=== PATIENT | male | born 1985 | race Caucasian/White ===

== ENCOUNTER 2022-02-08 19:44 | Inpatient (IN) | payer MEDICAID, SELFPAY ==
[2022-02-08 19:59] VITALS: BP 128/86; PULSE 58; RESP 14; O2SAT 96; BMI 34.8
--- NOTE | 2022-02-08 20:21 | PC.NURSE ---
[facility] referral submitted at this time.
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
[2022-02-08 21:43] LABS: MANUAL DIFF FLAG NO
[2022-02-08 21:50] LABS: Basophils Absolute Auto 0.1 X10*3/uL (0.0-0.2); Basophils Percent Auto 0.7 % (0-2); Eosinophils Absolute Auto 0.3 X10*3/uL (0.0-0.4); Eosinophils Percent Auto 4.4 % (0-4); Hematocrit 40.9 % (42.0-52.0); Hemoglobin 14.5 g/dl (14.0-18.0); Imm Gran Abs Auto 0.01 X10*3/uL (0.00-0.03); Imm Gran Pct Auto 0.1 % (0.0-0.4); Lymphocytes Absolute Auto 3.6 X10*3/uL (1.2-4.9); Lymphocytes Percent Auto 47.3 % (20-40); Mean Corpuscular HGB Conc 35.5 g/dl (31.0-36.0); Mean Corpuscular Hemoglobin 29.4 pg (27.0-33.0); Mean Corpuscular Volume 82.8 fL (80.0-98.0); Mean Platelet Volume 10.1 fL (9.4-12.4); Monocytes Absolute Auto 0.6 X10*3/uL (0.1-1.2); Monocytes Percent Auto 8.4 % (2-11); Neutrophils Percent Auto 39.1 % (45-73); Platelet Count 275 X10*3/uL (160-400); Red Blood Count 4.94 X10*6/uL (4.60-5.80); Red Cell Distribution Width 12.1 % (11.0-16.0); White Blood Count 7.5 X10*3/uL (4.8-10.8)
[2022-02-08 21:57] LABS: Amphetamine Screen Urine Not Detected (Not Detect); Barbiturates, Urine Not Detected (Not Detect); Benzodiazepines Screen Urine Not Detected (Not Detect); Cannabinoid Screen Urine POSITIVE (Not Detect); Cocaine Screen Urine Not Detected (Not Detect); Fentanyl, urine Not Detected (Not Detect); Opiate Screen Urine Not Detected (Not Detect); Phencyclidine Screen Urine Not Detected (Not Detect)
[2022-02-08 22:01] LABS: Alanine Aminotransferase 51 U/L (0-40); Albumin Level 4.3 g/dL (3.5-5.0); Alkaline Phosphatase 90 U/L (39-117); Anion Gap 10 (12-20); Aspartate Amino Transferase 25 U/L (5-37); Bilirubin Total 0.6 mg/dL (0.0-1.0); Blood Urea Nitrogen 14 mg/dL (9-16); Calcium 9.4 mg/dL (8.4-10.2); Carbon Dioxide 27 mmol/L (22-29); Chloride 106 mmol/L (96-108); Creatinine Clr Calc Pharmacy 163.9; Estimated Glomerular Filt Rate > 60; Ethanol < 10 mg/dL; Glucose Random 95 mg/dL (60-115); Potassium 3.8 mmol/L (3.3-5.1); Sodium 139 mmol/L (135-145); Total Protein 6.6 g/dL (6.5-8.0)
[2022-02-09 00:39] VITALS: BP 107/64; PULSE 51; RESP 17; TEMP 36.7; O2SAT 99
--- NOTE | 2022-02-09 06:20 | PC.NURSE ---
Patient slept through the night, no distress observed/reported, non behavior concerns at this time, seems confused or lost at time, med rec completed/patient is currently no on any medication, patient was assessed by [facility] in the community, disposition is section 12 inpatient bed search, VSS, will continue to monitor.
[2022-02-09 06:37] LABS: Influenza A PCR NEGATIVE (Negative); Influenza B PCR NEGATIVE (Negative); Resp Syncy Virus RNA Qual PCR NEGATIVE (Negative); SARS COV2 PCR INHOUSE NEGATIVE (Negative)
[2022-02-09 07:21] VITALS: BP 106/82; PULSE 68; RESP 16; TEMP 36.6; O2SAT 95
[2022-02-09] MEDS: Nicotine Polacrilex 2 MG GUM BUCCAL (13:09)
--- NOTE | 2022-02-09 17:05 | MHC.CARE ---
CARE Team discusses postponement of admission to inpt psych unit until tomorrow. Pt is understanding and calm, returns to playing cards with other patients in the milieu.
[2022-02-09 20:35] VITALS: BP 116/74; PULSE 76; RESP 18; TEMP 36.6; O2SAT 98
[2022-02-09] MEDS: diphenhydrAMINE HCL 25 MG CAPSULE 50 MG PO (22:06)
--- NOTE | 2022-02-10 05:38 | PC.NURSE ---
Patient slept through the night, + effect from Benadryl 50 mg administered at 2206 as requested by the patient, behavior and mood stable without any concerns at this time, med rec completed/patient is currently not on any home medication, disposition per [facility] from community is section 12 inpatient bed search, no update bed search thus far, VSS, will continue to monitor.
[2022-02-10 05:59] VITALS: BP 120/70; PULSE 68; RESP 16; O2SAT 98
[2022-02-10 10:01] VITALS: BP 114/76; PULSE 65; RESP 16; TEMP 36.5; O2SAT 96
[2022-02-10 11:22] VITALS: BP 120/78; PULSE 66; RESP 20; TEMP 37.1; O2SAT 98
[2022-02-10 12:45] VITALS: BP 133/82; PULSE 68; RESP 18; TEMP 36.6; O2SAT 96
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
--- NOTE | 2022-02-10 15:48 | PC.NURSE ---
Jh was admitted to M3 at 1230 from [facility] [place] [facility] for treatment of bipolar disorder. Precipitant of admission include no sleep for at least 4 weeks , belief that aliens are after him and ideas of reference involving the and the government. He is alert, oriented x 3 and cooperative with admission except refusing to sign releases. Mood is reportedly depressed. He denies hallucinations but appears paranoid and suspicious. Thought Process is disorganized. He denies ideation, plan or intent to harm self or others. He reports good appetite with no recent gain or loss in weight. He reports no sleep for the last 4 weeks. Substance Issues include daily marijuana use and history of alcohol use disorder with remission x last 4 years - one drink on Monday02/06/22 Patient denies current medical issues?and denies physical complaint. Patient is placed on q 15 minute safety checks.
[2022-02-10 20:10] VITALS: BP 140/73; PULSE 63; RESP 18; TEMP 36.2; O2SAT 97
[2022-02-10] MEDS: Lithium Carbonate ER 300 MG TABLET.ER 600 MG PO (20:14)
[2022-02-10] MEDS: OLANZapine 10 MG TABLET PO (20:14)
[2022-02-10] MEDS: LORazepam 1 MG TABLET 2 MG PO (20:14)
[2022-02-10] MEDS: Acetaminophen 325 MG TABLET 650 MG PO (20:15)
[2022-02-11 09:23] LABS: Alanine Aminotransferase 55 U/L (0-40); Albumin Level 4.3 g/dL (3.5-5.0); Alkaline Phosphatase 89 U/L (39-117); Anion Gap 9 (12-20); Aspartate Amino Transferase 21 U/L (5-37); Bilirubin Total 0.4 mg/dL (0.0-1.0); Blood Urea Nitrogen 13 mg/dL (9-16); Calcium 9.6 mg/dL (8.4-10.2); Carbon Dioxide 27 mmol/L (22-29); Chloride 106 mmol/L (96-108); Cholesterol 160 mg/dL; Creatinine Clr Calc Pharmacy 161.9; Estimated Glomerular Filt Rate > 60; Glucose Fasting 96 mg/dL (60-99); HDL Cholesterol 36 mg/dL; LDL Cholesterol Calculated 94 mg/dl; Potassium 4.4 mmol/L (3.3-5.1); Sodium 138 mmol/L (135-145); Total Protein 6.9 g/dL (6.5-8.0); Triglycerides 153 mg/dL
[2022-02-11 09:30] VITALS: BP 115/70; PULSE 60; RESP 20; TEMP 36.6; O2SAT 99
[2022-02-11] MEDS: Lithium Carbonate ER 300 MG TABLET.ER 600 MG PO ×2 (09:57→21:34)
--- NOTE | 2022-02-11 14:52 | HO.PSYCHPN ---
Subjective Subjective Date of Service: 02/11/22 Reason For Visit: si Interim History: calm, cooperative, pleasant, agreeable. reports he slept well last night, mood pretty good, attended art group. eating well. would like to remain in present regimen. per staff, cooperative. depressed. paranoid, disorganized. took lithium and zyprexa last night. slept. Mental Status Exam Mental Status Exam Narrative: calm, cooperative. wearing hospital rob. no PMA/PMR. speech nml amount, nml rate. nml tone, loudness. nml latency. thoughts more organized. better able to answer direct questions. affect constricted, normo-intense, non-labile. mood pretty good. no SI/HI/AVH expressed. Diagnostics Vital Signs (24Hr): Vital Signs - 24 hr 02/10/22 20:10 02/11/22 09:30 Temperature 97.2 F 97.8 F Pulse Rate 63 60 Respiratory Rate 18 20 Blood Pressure 140/73 H 115/70 Pulse Oximetry 97 99 Oxygen Delivery Method Room Air Room Air BMI result Body Mass Index 34.8 Labs Results: 02/08/22 21:38 02/11/22 08:21 Labs: Laboratory Results - last 48 hr 02/11/22 08:21 Sodium 138 Potassium 4.4 Chloride 106 Carbon Dioxide 27 Anion Gap 9 L BUN 13 Creatinine 0.80 Estim Creat Clear Calc 161.9 Estimated GFR > 60 Fasting Glucose 96 Calcium 9.6 Total Bilirubin 0.4 AST 21 ALT 55 H Alkaline Phosphatase 89 Total Protein 6.9 Albumin 4.3 Triglycerides 153 Cholesterol 160 LDL Cholesterol, Calc 94 HDL Cholesterol 36 Medications Medications Current Medications Acetaminophen (Acetaminophen 325 Mg Tablet) 650 mg PO Q6H PRN PRN Reason: Headache/Pain Mild Scale (1-3) Last Admin: 02/10/22 20:15 Dose: 650 mg Al Hydroxide/Mg Hydroxide (Magnesium Hydrox/Alum Hydrox 30 Ml Oral.Susp) 30 ml PO Q6H PRN PRN Reason: Heartburn/Nausea Hydroxyzine HCl (Hydroxyzine Hcl 25 Mg Tablet) 25 mg PO Q6H PRN PRN Reason: Anxiety [place] Carbonate ([place] Carbonate Er 300 Mg Tablet.Er) 600 mg PO BID [facility] Last Admin: 02/11/22 09:57 Dose: 600 mg Lorazepam (Lorazepam 1 Mg Tablet) 2 mg PO BEDTIME [facility] Last Admin: 02/10/22 20:14 Dose: 2 mg Magnesium Hydroxide (Milk Of Magnesia 30 Ml Oral.Susp) 30 ml PO DAILY PRN PRN Reason: Constipation Nicotine Polacrilex (Nicotine Polacrilex 2 Mg Gum) 4 mg [place] Q1H PRN PRN Reason: nicotine cravings Olanzapine (Olanzapine 2.5 Mg Tablet) 2.5 mg PO Q4H PRN PRN Reason: agitation/anxiety Olanzapine (Olanzapine 10 Mg Tablet) 10 mg PO BEDTIME [facility] Last Admin: 02/10/22 20:14 Dose: 10 mg Trazodone HCl (Trazodone Hcl 50 Mg Tablet) 50 mg PO BEDTIME PRN PRN Reason: Insomnia Allergies Allergies Allergy/AdvReac Type Severity Reaction Status Date / Time No Known Allergies Allergy Verified 02/08/22 21:27 Assessment & Plan Assessment & Plan (1) Bipolar I disorder with kaye: Status: Acute Code(s): F31.10 - Bipolar disorder, current episode manic without psychotic features, unspecified Plan 02/10: trial of lithium, starting at 600 BID, zyprexa 10 QHS, ativan 2 QHS. zyprexa 2.5 mg PRNs. NRT. 02/11: moderate improvement in thought organization seen even today. continue current mgmt. I spent __25____ minutes with the patient and/or on the patient floor today, greater than?50% of which was spent counseling/coordinating care. Reason for contiued inpatient stay Substantial Risk for: harm to self, harm to others, inability to function and rapid decompensation
[2022-02-11 21:31] VITALS: BP 147/92; PULSE 73; TEMP 36.7; O2SAT 98
[2022-02-11] MEDS: Acetaminophen 325 MG TABLET 650 MG PO (21:33)
[2022-02-11] MEDS: LORazepam 1 MG TABLET 2 MG PO (21:34)
[2022-02-11] MEDS: OLANZapine 10 MG TABLET PO (21:34)
[2022-02-11] MEDS: Milk of Magnesia 30 ML ORAL.SUSP PO (21:34)
--- NOTE | 2022-02-12 01:58 | P.PNPSI_ITS ---
Subjective Subjective Date of Service: 02/12/22 Reason For Visit: si Interim History: Spoke with pt and met with team. Pt says he feels about the same, feeling better, has been getting some sleep, slept pretty well through the night, no side effects on meds. He is thinking of signing a 3 day notice, worried about his [employer] job, wants to get back to work. Feels safe, no questions or concerns. Mental Status Exam Mental Status Exam Narrative: calm, cooperative.? wearing hospital rob.? no PMA/PMR.? speech nml amount, nml rate.? nml tone, loudness.? nml latency.? thoughts more organized.? better able to answer direct questions.? affect constricted, normo-intense, non- labile.? mood pretty good. ? no SI/HI/AVH expressed. Diagnostics Vital Signs (24Hr): Vital Signs - 24 hr 02/11/22 09:30 02/11/22 21:31 Temperature 97.8 F 98.1 F Pulse Rate 60 73 Respiratory Rate 20 Blood Pressure 115/70 147/92 H Pulse Oximetry 99 98 Oxygen Delivery Method Room Air Room Air BMI result Body Mass Index 34.8 Labs Results: 02/08/22 21:38 02/11/22 08:21 Labs: Laboratory Results - last 48 hr 02/11/22 08:21 Sodium 138 Potassium 4.4 Chloride 106 Carbon Dioxide 27 Anion Gap 9 L BUN 13 Creatinine 0.80 Estim Creat Clear Calc 161.9 Estimated GFR > 60 Fasting Glucose 96 Calcium 9.6 Total Bilirubin 0.4 AST 21 ALT 55 H Alkaline Phosphatase 89 Total Protein 6.9 Albumin 4.3 Triglycerides 153 Cholesterol 160 LDL Cholesterol, Calc 94 HDL Cholesterol 36 Medications Medications Current Medications Acetaminophen (Acetaminophen 325 Mg Tablet) 650 mg PO Q6H PRN PRN Reason: Headache/Pain Mild Scale (1-3) Last Admin: 02/11/22 21:33 Dose: 650 mg Al Hydroxide/Mg Hydroxide (Magnesium Hydrox/Alum Hydrox 30 Ml Oral.Susp) 30 ml PO Q6H PRN PRN Reason: Heartburn/Nausea Hydroxyzine HCl (Hydroxyzine Hcl 25 Mg Tablet) 25 mg PO Q6H PRN PRN Reason: Anxiety [place] Carbonate ([place] Carbonate Er 300 Mg Tablet.Er) 600 mg PO BID [facility] Last Admin: 02/11/22 21:34 Dose: 600 mg Lorazepam (Lorazepam 1 Mg Tablet) 2 mg PO BEDTIME [facility] Last Admin: 02/11/22 21:34 Dose: 2 mg Magnesium Hydroxide (Milk Of Magnesia 30 Ml Oral.Susp) 30 ml PO DAILY PRN PRN Reason: Constipation Last Admin: 02/11/22 21:34 Dose: 30 ml Nicotine Polacrilex (Nicotine Polacrilex 2 Mg Gum) 4 mg [place] Q1H PRN PRN Reason: nicotine cravings Olanzapine (Olanzapine 2.5 Mg Tablet) 2.5 mg PO Q4H PRN PRN Reason: agitation/anxiety Olanzapine (Olanzapine 10 Mg Tablet) 10 mg PO BEDTIME [facility] Last Admin: 02/11/22 21:34 Dose: 10 mg Trazodone HCl (Trazodone Hcl 50 Mg Tablet) 50 mg PO BEDTIME PRN PRN Reason: Insomnia Allergies Allergies Allergy/AdvReac Type Severity Reaction Status Date / Time No Known Allergies Allergy Verified 02/08/22 21:27 Assessment & Plan Assessment & Plan (1) Bipolar I disorder with kaye: Status: Acute Code(s): F31.10 - Bipolar disorder, current episode manic without psychotic features, unspecified Plan 02/10: trial of lithium, starting at 600 BID, zyprexa 10 QHS, ativan 2 QHS. zyprexa 2.5 mg PRNs. NRT. 02/11: moderate improvement in thought organization seen even today. continue current mgmt. 02/12: no med changes, sleeping better I spent minutes with the patient and/or on the patient floor today, greater than?50% of which was spent counseling/coordinating care. Patient educated on: medication risk/benefits and therapeutic strategies Reason for contiued inpatient stay Substantial Risk for: med/psych decompensation
[2022-02-12 08:35] VITALS: BP 130/74; PULSE 69; TEMP 36.6; O2SAT 98
[2022-02-12] MEDS: Lithium Carbonate ER 300 MG TABLET.ER 600 MG PO ×2 (09:02→21:27)
[2022-02-12 18:40] VITALS: BP 133/82; PULSE 81; RESP 16; TEMP 36.6; O2SAT 97
[2022-02-12] MEDS: OLANZapine 10 MG TABLET PO (21:27)
[2022-02-12] MEDS: LORazepam 1 MG TABLET 2 MG PO (21:27)
[2022-02-12] MEDS: Acetaminophen 325 MG TABLET 650 MG PO (21:31)
[2022-02-13 08:42] VITALS: BP 121/77; PULSE 75; RESP 16; TEMP 37; O2SAT 96
[2022-02-13] MEDS: Lithium Carbonate ER 300 MG TABLET.ER 600 MG PO ×2 (08:46→20:22)
[2022-02-13] MEDS: Nicotine Polacrilex 2 MG GUM 4 MG BUCCAL (12:10)
--- NOTE | 2022-02-13 14:41 | P.PNPSI_ITS ---
Subjective Subjective Date of Service: 02/13/22 Reason For Visit: si Interim History: Spoke with pt, met with team. Pt says he is feeling about the same. Says he got some good sleep and some good treatment. Discussed that he is familiar with hospitalization and the need for med adherence with his diagnosis, for me its ongoing and Im comfortable in this environment. Says for the most part, the lithium hit the spot, doesnt feel oversedated. Feels safe. No questions or concerns. Mental Status Exam Mental Status Exam Narrative: calm, cooperative.? wearing hospital rob.? no PMA/PMR.? speech nml amount, nml rate.? nml tone, loudness.? nml latency.? thoughts more organized.? better able to answer direct questions.? affect constricted, normo-intense, non- labile.? mood pretty good. ? no SI/HI/AVH expressed. Diagnostics Vital Signs (24Hr): Vital Signs - 24 hr 02/12/22 18:40 02/13/22 08:42 Temperature 98 F 98.6 F Pulse Rate 81 75 Respiratory Rate 16 16 Blood Pressure 133/82 121/77 Pulse Oximetry 97 96 Oxygen Delivery Method Room Air Room Air BMI result Body Mass Index 34.8 Labs Results: 02/08/22 21:38 02/11/22 08:21 Medications Medications Current Medications Acetaminophen (Acetaminophen 325 Mg Tablet) 650 mg PO Q6H PRN PRN Reason: Headache/Pain Mild Scale (1-3) Last Admin: 02/12/22 21:31 Dose: 650 mg Al Hydroxide/Mg Hydroxide (Magnesium Hydrox/Alum Hydrox 30 Ml Oral.Susp) 30 ml PO Q6H PRN PRN Reason: Heartburn/Nausea Hydroxyzine HCl (Hydroxyzine Hcl 25 Mg Tablet) 25 mg PO Q6H PRN PRN Reason: Anxiety [place] Carbonate ([place] Carbonate Er 300 Mg Tablet.Er) 600 mg PO BID KOMAL Last Admin: 02/13/22 08:46 Dose: 600 mg Lorazepam (Lorazepam 1 Mg Tablet) 2 mg PO BEDTIME KOMAL Last Admin: 02/12/22 21:27 Dose: 2 mg Magnesium Hydroxide (Milk Of Magnesia 30 Ml Oral.Susp) 30 ml PO DAILY PRN PRN Reason: Constipation Last Admin: 02/11/22 21:34 Dose: 30 ml Nicotine Polacrilex (Nicotine Polacrilex 2 Mg Gum) 4 mg [place]AL Q1H PRN PRN Reason: nicotine cravings Last Admin: 02/13/22 12:10 Dose: 4 mg Olanzapine (Olanzapine 2.5 Mg Tablet) 2.5 mg PO Q4H PRN PRN Reason: agitation/anxiety Olanzapine (Olanzapine 10 Mg Tablet) 10 mg PO BEDTIME KOMAL Last Admin: 02/12/22 21:27 Dose: 10 mg Trazodone HCl (Trazodone Hcl 50 Mg Tablet) 50 mg PO BEDTIME PRN PRN Reason: Insomnia Allergies Allergies Allergy/AdvReac Type Severity Reaction Status Date / Time No Known Allergies Allergy Verified 02/08/22 21:27 Assessment & Plan Assessment & Plan (1) Bipolar I disorder with kaye: Status: Acute Code(s): F31.10 - Bipolar disorder, current episode manic without psychotic features, unspecified Plan 02/10: trial of lithium, starting at 600 BID, zyprexa 10 QHS, ativan 2 QHS. zyprexa 2.5 mg PRNs. NRT. 02/11: moderate improvement in thought organization seen even today. continue current mgmt. 02/12: no med changes, sleeping better 02/13: signed TDN, no med changes I spent minutes with the patient and/or on the patient floor today, greater than?50% of which was spent counseling/coordinating care. Reason for contiued inpatient stay Substantial Risk for: med/psych decompensation
[2022-02-13] MEDS: OLANZapine 10 MG TABLET PO (20:22)
[2022-02-13] MEDS: LORazepam 1 MG TABLET 2 MG PO (20:22)
[2022-02-13 20:35] VITALS: BP 150/98; PULSE 89; TEMP 36.6; O2SAT 97
[2022-02-14 08:50] VITALS: BP 158/79; PULSE 78; RESP 20; TEMP 36.4; O2SAT 96
[2022-02-14] MEDS: Lithium Carbonate ER 300 MG TABLET.ER 600 MG PO ×2 (09:34→21:52)
--- NOTE | 2022-02-14 15:12 | P.PNPSI_ITS ---
Subjective Subjective Date of Service: 02/14/22 Reason For Visit: si Interim History: feeling improved, questioning his beliefs/behaviors prior to admission. good mood, sleeping well. willing to have labs checked tomorrow morning. per staff, 3-day up 02/16. visible, social. not attending groups. anxious and depressed. sleeping. Mental Status Exam Mental Status Exam Narrative: calm, cooperative.? wearing street clothes.? no PMA/PMR.? speech nml amount, nml rate.? nml tone, loudness.? nml latency.? thoughts organized.? able to answer direct questions.? affect constricted, normo-intense, non-labile.? mood very well. ? no SI/HI/AVH expressed. Diagnostics Vital Signs (24Hr): Vital Signs - 24 hr 02/13/22 20:35 02/14/22 08:50 Temperature 97.9 F 97.5 F Pulse Rate 89 78 Respiratory Rate 20 Blood Pressure 150/98 H 158/79 H Pulse Oximetry 97 96 Oxygen Delivery Method Room Air Room Air BMI result Body Mass Index 34.8 Labs Results: 02/08/22 21:38 02/11/22 08:21 Medications Medications Current Medications Acetaminophen (Acetaminophen 325 Mg Tablet) 650 mg PO Q6H PRN PRN Reason: Headache/Pain Mild Scale (1-3) Last Admin: 02/12/22 21:31 Dose: 650 mg Al Hydroxide/Mg Hydroxide (Magnesium Hydrox/Alum Hydrox 30 Ml Oral.Susp) 30 ml PO Q6H PRN PRN Reason: Heartburn/Nausea Hydroxyzine HCl (Hydroxyzine Hcl 25 Mg Tablet) 25 mg PO Q6H PRN PRN Reason: Anxiety [place] Carbonate ([place] Carbonate Er 300 Mg Tablet.Er) 600 mg PO BID [facility] Last Admin: 02/14/22 09:34 Dose: 600 mg Lorazepam (Lorazepam 1 Mg Tablet) 2 mg PO BEDTIME KOMAL Last Admin: 02/13/22 20:22 Dose: 2 mg Magnesium Hydroxide (Milk Of Magnesia 30 Ml Oral.Susp) 30 ml PO DAILY PRN PRN Reason: Constipation Last Admin: 02/11/22 21:34 Dose: 30 ml Nicotine Polacrilex (Nicotine Polacrilex 2 Mg Gum) 4 mg [place] Q1H PRN PRN Reason: nicotine cravings Last Admin: 02/13/22 12:10 Dose: 4 mg Olanzapine (Olanzapine 2.5 Mg Tablet) 2.5 mg PO Q4H PRN PRN Reason: agitation/anxiety Olanzapine (Olanzapine 10 Mg Tablet) 10 mg PO BEDTIME KOMAL Last Admin: 02/13/22 20:22 Dose: 10 mg Trazodone HCl (Trazodone Hcl 50 Mg Tablet) 50 mg PO BEDTIME PRN PRN Reason: Insomnia Allergies Allergies Allergy/AdvReac Type Severity Reaction Status Date / Time No Known Allergies Allergy Verified 02/08/22 21:27 Assessment & Plan Assessment & Plan (1) Bipolar I disorder with kaye: Status: Acute Code(s): F31.10 - Bipolar disorder, current episode manic without psychotic features, unspecified Plan 02/10: trial of lithium, starting at 600 BID, zyprexa 10 QHS, ativan 2 QHS. zyprexa 2.5 mg PRNs. NRT. 02/11: moderate improvement in thought organization seen even today. continue current mgmt. 02/12: no med changes, sleeping better 02/13: signed TDN, no med changes 02/14: mood improved, sleeping improved, thoughts improved. check labs tomorrow. 3-day notice matures 02/16. I spent ___25___ minutes with the patient and/or on the patient floor today, greater than?50% of which was spent counseling/coordinating care. Reason for contiued inpatient stay Substantial Risk for: inability to function and rapid decompensation
[2022-02-14 21:45] VITALS: BP 141/87; PULSE 73; RESP 18; TEMP 36.4; O2SAT 97
[2022-02-14] MEDS: OLANZapine 10 MG TABLET PO (21:52)
[2022-02-14] MEDS: LORazepam 1 MG TABLET 2 MG PO (21:52)
[2022-02-14] MEDS: Milk of Magnesia 30 ML ORAL.SUSP PO (21:52)
[2022-02-15 06:00] VITALS: BP 132/84; PULSE 80; RESP 16; TEMP 36.9; O2SAT 97
[2022-02-15] MEDS: Lithium Carbonate ER 300 MG TABLET.ER 600 MG PO (08:56)
[2022-02-15 09:00] LABS: MANUAL DIFF FLAG NO
[2022-02-15 09:05] LABS: Basophils Percent Auto 0.4 % (0-2); Eosinophils Absolute Auto 0.3 X10*3/uL (0.0-0.4); Hemoglobin 14.7 g/dl (14.0-18.0); Imm Gran Abs Auto 0.03 X10*3/uL (0.00-0.03); Imm Gran Pct Auto 0.4 % (0.0-0.4); Lymphocytes Absolute Auto 2.9 X10*3/uL (1.2-4.9); Lymphocytes Percent Auto 35.4 % (20-40); Mean Corpuscular HGB Conc 34.2 g/dl (31.0-36.0); Mean Corpuscular Hemoglobin 28.8 pg (27.0-33.0); Mean Corpuscular Volume 84.3 fL (80.0-98.0); Mean Platelet Volume 10.2 fL (9.4-12.4); Monocytes Absolute Auto 0.7 X10*3/uL (0.1-1.2); Monocytes Percent Auto 8.8 % (2-11); Neutrophils Absolute Auto 4.1 x10*3/uL (2.0-8.3); Platelet Count 254 X10*3/uL (160-400); Red Cell Distribution Width 12.2 % (11.0-16.0); White Blood Count 8.1 X10*3/uL (4.8-10.8)
[2022-02-15 10:01] LABS: Lithium 0.48 mmol/L (0.60-1.20)
[2022-02-15 10:28] LABS: Alanine Aminotransferase 57 U/L (0-40); Alkaline Phosphatase 74 U/L (39-117); Anion Gap 9 (12-20); Aspartate Amino Transferase 25 U/L (5-37); Bilirubin Direct < 0.2 mg/dL (0.0-0.5); Bilirubin Total 0.3 mg/dL (0.0-1.0); Blood Urea Nitrogen 12 mg/dL (9-16); Calcium 9.2 mg/dL (8.4-10.2); Carbon Dioxide 29 mmol/L (22-29); Chloride 109 mmol/L (96-108); Creatinine Clr Calc Pharmacy 154.1; Estimated Glomerular Filt Rate > 60; Glucose Random 93 mg/dL (60-115); Potassium 4.9 mmol/L (3.3-5.1); Sodium 142 mmol/L (135-145); Total Protein 6.4 g/dL (6.5-8.0)
--- NOTE | 2022-02-15 16:42 | HO.PSYCHPN ---
Subjective Subjective Date of Service: 02/15/22 Reason For Visit: si Interim History: sleeping in bed late morning, denies feeling sedated by meds. feels comfortable on both lithium and zyprexa. subtherapeutic lithium level reviewed, pt agreeable to increase from 600 BID to 600/900. planning to discharge tomorrow, informed he will need his level checked in about a week. MD indicates plan to taper ativan prior to discharge, with which pt agrees. per staff, 3-day up tomorrow. slept much of the day yesterday. otherwise visible, social. better sleep since admission. no SI/HI/AVH. eating and sleeping well. slept through the NOC. Mental Status Exam Mental Status Exam Narrative: calm, cooperative.? wearing street clothes.? no PMA/PMR.? speech nml amount, nml rate.? nml tone, loudness.? nml latency.? thoughts organized.? able to answer direct questions.? affect constricted, normo-intense, non-labile.? no SI/HI/AVH expressed. Diagnostics Vital Signs (24Hr): Vital Signs - 24 hr 02/14/22 21:45 02/15/22 06:00 Temperature 97.5 F 98.4 F Pulse Rate 73 80 Respiratory Rate 18 16 Blood Pressure 141/87 H 132/84 Pulse Oximetry 97 97 Oxygen Delivery Method Room Air Room Air BMI result Body Mass Index 34.8 Labs Results: 02/15/22 08:42 02/15/22 08:42 Labs: Laboratory Results - last 48 hr 02/15/22 02/15/22 02/15/22 08:42 08:42 08:42 WBC 8.1 RBC 5.10 Hgb 14.7 Hct 43.0 MCV 84.3 MCH 28.8 MCHC 34.2 RDW 12.2 Plt Count 254 MPV 10.2 Immature Gran % (Auto) 0.4 Neut % (Auto) 51.0 Lymph % (Auto) 35.4 [place] % (Auto) 8.8 Eos % (Auto) 4.0 Baso % (Auto) 0.4 Lymph # (Auto) 2.9 [place] # (Auto) 0.7 Eos # (Auto) 0.3 Baso # (Auto) 0.0 Abs Immat Gran (auto) 0.03 Absolute Neuts (auto) 4.1 Absolute Nucleated RBC 0.000 Nucleated RBC % (auto) 0.0 Sodium 142 Potassium 4.9 Chloride 109 H Carbon Dioxide 29 Anion Gap 9 L BUN 12 Creatinine 0.84 Estim Creat Clear Calc 154.1 Estimated GFR > 60 Random Glucose 93 Calcium 9.2 Total Bilirubin 0.3 Direct Bilirubin < 0.2 AST 25 ALT 57 H Alkaline Phosphatase 74 Total Protein 6.4 L Albumin 4.0 [place] 0.48 L Medications Medications Current Medications Acetaminophen (Acetaminophen 325 Mg Tablet) 650 mg PO Q6H PRN PRN Reason: Headache/Pain Mild Scale (1-3) Last Admin: 02/12/22 21:31 Dose: 650 mg Al Hydroxide/Mg Hydroxide (Magnesium Hydrox/Alum Hydrox 30 Ml Oral.Susp) 30 ml PO Q6H PRN PRN Reason: Heartburn/Nausea Hydroxyzine HCl (Hydroxyzine Hcl 25 Mg Tablet) 25 mg PO Q6H PRN PRN Reason: Anxiety [place] Carbonate ([place] Carbonate Er 300 Mg Tablet.Er) 600 mg PO DAILY KOMAL [place] Carbonate ([place] Carbonate Er 450 Mg Tablet.Er) 900 mg PO BEDTIME KOMAL Lorazepam (Lorazepam 1 Mg Tablet) 1 mg PO BEDTIME KOMAL Magnesium Hydroxide (Milk Of Magnesia 30 Ml Oral.Susp) 30 ml PO DAILY PRN PRN Reason: Constipation Last Admin: 02/14/22 21:52 Dose: 30 ml Nicotine Polacrilex (Nicotine Polacrilex 2 Mg Gum) 4 mg [place]CCAL Q1H PRN PRN Reason: nicotine cravings Last Admin: 02/13/22 12:10 Dose: 4 mg Olanzapine (Olanzapine 2.5 Mg Tablet) 2.5 mg PO Q4H PRN PRN Reason: agitation/anxiety Olanzapine (Olanzapine 10 Mg Tablet) 10 mg PO BEDTIME KOMAL Last Admin: 02/14/22 21:52 Dose: 10 mg Psyllium Hydrophilic Mucilloid (Psyllium Seed 3.4 Gm Powd.Pack) 3.4 gm PO DAILY KOMAL Last Admin: 02/15/22 10:04 Dose: 3.4 gm Trazodone HCl (Trazodone Hcl 50 Mg Tablet) 50 mg PO BEDTIME PRN PRN Reason: Insomnia Allergies Allergies Allergy/AdvReac Type Severity Reaction Status Date / Time No Known Allergies Allergy Verified 02/08/22 21:27 Assessment & Plan Assessment & Plan (1) Bipolar I disorder with kaye: Status: Acute Code(s): F31.10 - Bipolar disorder, current episode manic without psychotic features, unspecified Plan 02/10: trial of lithium, starting at 600 BID, zyprexa 10 QHS, ativan 2 QHS. zyprexa 2.5 mg PRNs. NRT. 02/11: moderate improvement in thought organization seen even today. continue current mgmt. 02/12: no med changes, sleeping better 02/13: signed TDN, no med changes 02/14: mood improved, sleeping improved, thoughts improved. check labs tomorrow. 3-day notice matures 02/16. 02/15: stable. lithium level 0.48 on 600 BID. dosing increased to 600/900 as of tonight. discharging tomorrow, will need lithium level a week after discharge. I spent ___25___ minutes with the patient and/or on the patient floor today, greater than?50% of which was spent counseling/coordinating care. Reason for contiued inpatient stay Substantial Risk for: inability to function and rapid decompensation
[2022-02-15] MEDS: OLANZapine 10 MG TABLET PO (20:43)
[2022-02-15] MEDS: LORazepam 1 MG TABLET PO (20:43)
[2022-02-15] MEDS: Lithium Carbonate ER 450 MG TABLET.ER 900 MG PO (20:43)
[2022-02-15 20:45] VITALS: BP 165/86; PULSE 87; RESP 18; TEMP 36.7; O2SAT 95
[2022-02-15] MEDS: Nicotine Polacrilex 2 MG GUM 4 MG BUCCAL (21:17)
[2022-02-16 09:41] VITALS: BP 136/78; PULSE 72; RESP 20; TEMP 36.7; O2SAT 98
[2022-02-16] MEDS: Lithium Carbonate ER 300 MG TABLET.ER 600 MG PO (09:46)
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
--- NOTE | 2022-02-16 11:04 | PC.NURSE ---
Patient easily engaged. Denies depression or sadness, denies SI/HI plan or intent. Endorses anxiety related to job, car, overdue bills. I left myself a few things to take care of . Denies A/V hallucinations, denies paranoia, suspiciousness. I was delusional when I got here, I thought people were after me . States hospitalization was helpful. Discharge paperwork reviewed with patient, reports understanding. All prescriptions reviewed, reports understanding. All belongings taken with patient. Crisis numbers provided. Information provided regarding [place] walk in [facility].
== END 2022-02-16 10:58 | disposition home or self-care (01) | DRG 753 ==
LOC: HO.ED 02-10 10:01 → HO.PADLT16 02-10 12:12
PROVIDERS: Nurse Practitioner Family; Social Worker; Admitting Provider Psychiatry & Neurology Psychiatry; Emergency Provider Internal Medicine; Visit Provider Psychiatry & Neurology Psychiatry
DX: F31.10 Bipolar disorder, current episode manic without psychotic features, unspecified (principal); Z91.14 Patient's other noncompliance with medication regimen; F10.21 Alcohol dependence, in remission; F17.210 Nicotine dependence, cigarettes, uncomplicated; Z71.6 Tobacco abuse counseling; Z23 Encounter for immunization; Z20.822 Contact with and (suspected) exposure to COVID-19; Z79.899 Other long term (current) drug therapy
CPT/HCPCS: 0241U; 36415; 80048; 80053; 80061; 80076; 80178; 80307; 82077; 85025; 90686; 99285